=== PATIENT | female | born 1990 | race Hispanic/Latino ===

== ENCOUNTER 2024-03-31 18:45 | Inpatient (IN) | payer OTHER ==
[2024-03-31 19:00] VITALS: BMI 40.5
[2024-03-31] MEDS ORDERED: Diphenoxylate HCl/Atropine Tablet PO PRN (20:00)
[2024-03-31] MEDS ORDERED: Carboprost 250 MCG/ML AMP IM PRN (20:00)
[2024-03-31] MEDS ORDERED: Tranexamic Acid 1,000 MG/10 ML VIAL IVP PRN (20:00)
[2024-03-31] MEDS ORDERED: Acetaminophen 500 MG TAB PO PRN (20:00)
[2024-03-31] MEDS ORDERED: fentaNYL 50 mcg/mL 1 mL Vial SLOW IVP PRN (20:00)
[2024-03-31] MEDS ORDERED: Lorazepam 2 MG/ML VIAL SLOW IVP PRN (20:00)
[2024-03-31] MEDS ORDERED: Calcium Gluc 4.6 MEQ/10 ML (100 MG/ML) SLOW IVP PRN (20:00)
[2024-03-31] MEDS ORDERED: Promethazine HCl 25 MG/ML VIAL IM PRN (20:00)
[2024-03-31] MEDS: Labetalol HCl 100 MG/20 ML VIAL ONE (20:00)
[2024-03-31] MEDS ORDERED: Oxytocin 30 units/NS 500 ML 500 ML IV SCH (20:00)
[2024-03-31] MEDS ORDERED: Magnesium Sulfate 20 gm/500 ml 20 GM/500 ML BAG IVPB SCH (20:00)
[2024-03-31] MEDS ORDERED: Lidocaine 1% (PF) 30 ML VIAL SC PRN (20:00)
[2024-03-31] MEDS ORDERED: Labetalol HCl 100 MG/20 ML VIAL SLOW IVP PRN (20:07)
[2024-03-31] MEDS: Lactated Ringer's 1,000 ML IV SCH (20:16)
[2024-03-31] MEDS: Magnesium Sulfate 20 gm/500 ml 20 GM/500 ML BAG ONE (20:18)
[2024-03-31] MEDS: Labetalol HCl 100 MG/20 ML VIAL SLOW IVP PRN ×2 (20:37→21:43)
[2024-03-31 20:53] LABS: #Basophils 0.02 10x3/uL (0.0-0.2); #Eosinphils 0.04 10x3/uL (0.0-0.5); %Basophils 0.2 % (0.0-2.0); %Eosinophils 0.4 % (0.0-6.0); %Lymphocytes 23.3 % (18.0-47.0); %Monocytes 6.7 % (0.0-10.0); Hematocrit 32.9 % (34.9-44.5); Hemoglobin 10.9 g/dL (12.0-15.5); Mean Corpuscular HGB CONC 33.1 g/dL (32.0-36.0); Mean Corpuscular Hemoglobin 27.8 pg (27.0-33.0); Mean Corpuscular Volume 83.9 fL (81.6-98.3); Mean Platelet Volume 10.1 fL (7.4-10.4); Platelet Count 322 10x3/uL (150-450); RBC Distribution Width 13.3 % (11.5-14.5); Red Blood Cell (RBC) Count 3.92 10x6/uL (3.90-5.03); White Blood Cell (WBC) Count 10.4 10x3/uL (3.5-10.5)
[2024-03-31] MEDS ORDERED: Lantus 1000 UNITS/10 ML VIAL SC SCH (21:00)
[2024-03-31 21:04] LABS: ALT (SGPT) 28 U/L (8-55); AST (SGOT) 26 U/L (5-34); Albumin 2.5 g/dL (3.5-5.0); Alkaline Phosphatase 98 U/L (40-110); Anion Gap 12 mmol/L (10-20); BUN (Urea Nitrogen) 16 mg/dL (7.0-18.7); Bilirubin, Total 0.2 mg/dL (0.2-1.2); Calc. Creatinine Clearance 187 mL/min (70-130); Calcium 9.5 mg/dL (7.8-10.44); Carbon Dioxide 22 mmol/L (22-29); Chloride 107 mmol/L (98-107); Estimated GFR 102; Globulin 4.8 g/dL (2.4-3.5); Glucose 63 mg/dL (70-105); Potassium 4.1 mmol/L (3.5-5.1); Protein, Total 7.3 g/dL (6.0-8.3); Sodium 137 mmol/L (136-145)
[2024-03-31] MEDS: Misoprostol 100 MCG TAB VAG SCH (21:05)
[2024-03-31 21:23] LABS: HBsAg Index 0.13 S/CO (0-0.99); Hep B Surf Ag - L&D Non-Reactive S/CO (NonReactive); Syphilis Antibody Nonreactive (Nonreactive); Syphilis Antibody Index 0.05 S/CO (<1.00 Non-Reactive)
[2024-03-31 21:55] LABS: Creatinine, Urine 176.22 mg/dL (47-110)
[2024-03-31] MEDS: Labetalol HCl 200 MG TAB PO SCH (22:20)
[2024-04-01] MEDS: Penicillin G Potassium 5 MILL.UNITS in Sodium Chloride 0.9% 100 ML IVPB SCH (00:45)
[2024-04-01 01:36] LABS: Magnesium 4.1 mg/dL (1.6-2.6)
[2024-04-01] MEDS: hydrALAZINE 20 MG/ML VIAL SLOW IVP PRN ×2 (01:41→02:07)
[2024-04-01] MEDS ORDERED: NIFEdipine XL 30 MG ER.TAB PO SCH (02:15)
[2024-04-01] MEDS: NIFEdipine 10 MG CAP PO SCH (02:18)
[2024-04-01] MEDS: Penicillin G 2.5 MILL.units 2.5 MILL.UNITS in Premix 1 BAG IVPB SCH (05:01)
[2024-04-01] MEDS: Magnesium Sulfate 20 gm/500 ml 20 GM/500 ML BAG IVPB SCH (05:06)
[2024-04-01] MEDS ORDERED: Dextrose 50% Abboject 50 ML SYRINGE SLOW IVP PRN (06:49)
[2024-04-01] MEDS ORDERED: Glucagon 1 MG/ML KIT IM PRN (06:49)
[2024-04-01] MEDS ORDERED: Insulin Lispro 100 UNIT/ML 10 ML VIAL SC PRN (06:49)
[2024-04-01] MEDS ORDERED: Dextrose 5% in Water 1,000 ML IV PRN (06:49)
[2024-04-01] MEDS: Labetalol HCl 200 MG TAB PO SCH (08:39)
[2024-04-01 09:05] LABS: #Basophils 0.02 10x3/uL (0.0-0.2); #Eosinphils 0.02 10x3/uL (0.0-0.5); #Monocytes 0.49 10x3/uL (0.0-1.1); #Neutrophils 8.73 10x3/uL (1.5-8.4); %Basophils 0.2 % (0.0-2.0); %Eosinophils 0.2 % (0.0-6.0); %Lymphocytes 15.2 % (18.0-47.0); %Monocytes 4.5 % (0.0-10.0); %Neutrophils 79.4 % (40.0-75.0); Hematocrit 31.4 % (34.9-44.5); Hemoglobin 10.8 g/dL (12.0-15.5); Mean Corpuscular HGB CONC 34.4 g/dL (32.0-36.0); Mean Corpuscular Hemoglobin 28.5 pg (27.0-33.0); Mean Corpuscular Volume 82.8 fL (81.6-98.3); Mean Platelet Volume 9.7 fL (7.4-10.4); Platelet Count 299 10x3/uL (150-450); RBC Distribution Width 13.3 % (11.5-14.5); Red Blood Cell (RBC) Count 3.79 10x6/uL (3.90-5.03)
[2024-04-01 09:22] LABS: ALT (SGPT) 27 U/L (8-55); AST (SGOT) 23 U/L (5-34); Albumin 2.4 g/dL (3.5-5.0); Alkaline Phosphatase 96 U/L (40-110); Anion Gap 14 mmol/L (10-20); BUN (Urea Nitrogen) 14 mg/dL (7.0-18.7); Bilirubin, Total 0.2 mg/dL (0.2-1.2); Calc. Creatinine Clearance 199 mL/min (70-130); Calcium 8.1 mg/dL (7.8-10.44); Carbon Dioxide 18 mmol/L (22-29); Chloride 103 mmol/L (98-107); Estimated GFR 110; Glucose 88 mg/dL (70-105); Potassium 4.3 mmol/L (3.5-5.1); Protein, Total 6.4 g/dL (6.0-8.3); Sodium 131 mmol/L (136-145)
[2024-04-01 09:25] LABS: Critical Call Chemistry NUR.BH11@0925; Magnesium 5.3 mg/dL (1.6-2.6)
[2024-04-01] MEDS: Oxytocin 30 units/NS 500 ML 500 ML IV SCH (11:34)
[2024-04-01] MEDS: Ondansetron PF 4 MG/2 ML Vial IVP PRN (15:08)
[2024-04-01] MEDS ORDERED: Bupivacaine/Epinephrine 0.25% 30 ML VIAL ONE (16:00)
[2024-04-01] MEDS: fentaNYL/Ropivacaine Epidural 100 ML ONE (17:41)
[2024-04-01] MEDS ORDERED: Naloxone HCl 0.4 mg/ml Vial IV PRN (18:34)
[2024-04-01] MEDS ORDERED: Moisturizing Cream (Eucerin) 113 GM JAR TOP PRN (18:34)
[2024-04-01] MEDS ORDERED: Ondansetron PF 4 MG/2 ML Vial IVP PRN (18:34)
[2024-04-01] MEDS ORDERED: Promethazine HCl 25 MG/ML VIAL IM PRN (18:34)
[2024-04-01] MEDS ORDERED: Meperidine HCl/PF 25 MG (1 mL) VIAL SLOW IVP PRN (18:34)
[2024-04-01] MEDS ORDERED: diphenhydrAMINE 50 MG/ML VIAL IVP PRN (18:34)
[2024-04-01] MEDS ORDERED: fentaNYL 50 mcg/mL 1 mL Vial SLOW IVP PRN (18:34)
[2024-04-01] MEDS ORDERED: Naloxone HCl 0.4 mg/ml Vial IVP PRN ×2 (18:34)
[2024-04-01] MEDS ORDERED: Communication Order-Pharmacy FS SCH (18:45)
[2024-04-01] MEDS: Famotidine/PF 20 mg/2ml Vial SLOW IVP PRN (18:54)
[2024-04-01] MEDS: CEFAZOLIN 2 GM in Sodium Chloride 0.9% 100 ML IVPB SCH (18:54)
[2024-04-01] MEDS: Bicitra 30 ML UDCUP PO PRN (18:54)
[2024-04-01] MEDS: Azithromycin 500 MG in Sodium Chloride 0.9% 250 ML 250 ML IVPB SCH (18:54)
[2024-04-01] MEDS: Misoprostol 200 MCG TAB PR PRN (21:36)
[2024-04-01] MEDS ORDERED: Misoprostol 200 MCG TAB PR PRN (22:09)
[2024-04-01] MEDS ORDERED: Bisacodyl 10 MG SUPP PR PRN (22:09)
[2024-04-01] MEDS ORDERED: Measles/Mumps/Rubella 10 MCG/0.5 ML VIAL SC ONE (22:09)
[2024-04-01] MEDS ORDERED: Lanolin Ointment 7 GM TUBE TOP PRN (22:09)
[2024-04-01] MEDS ORDERED: hydrALAZINE 20 MG/ML VIAL SLOW IVP PRN (22:09)
[2024-04-01] MEDS ORDERED: Simethicone Chewable 80 MG TAB PO PRN (22:09)
[2024-04-01] MEDS ORDERED: Oxytocin 30 units/NS 500 ML 500 ML IV SCH (22:15)
[2024-04-02] MEDS: Ondansetron PF 4 MG/2 ML Vial IVP PRN ×2 (01:21→10:39)
[2024-04-02] MEDS: Acetaminophen 325 MG TAB PO SCH ×2 (02:01→02:12)
[2024-04-02] MEDS: Ondansetron PF 4 MG/2 ML Vial ONE (02:02)
[2024-04-02] MEDS: Ketorolac Tromethamine 30 MG (1 mL) VIAL ONE (02:02)
[2024-04-02] MEDS: Dexamethasone 10 MG/ML VIAL ONE (02:10)
[2024-04-02] MEDS: hydrALAZINE 20 MG/ML VIAL SLOW IVP SCH (02:10)
[2024-04-02] MEDS: Lactated Ringer's 500 ML IV SCH (02:10)
[2024-04-02] MEDS: Lidocaine 2% MPF 10 ML AMP (For Epidural Use) ONE (02:11)
[2024-04-02] MEDS: Misoprostol 200 MCG TAB ONE (02:11)
[2024-04-02] MEDS: Promethazine HCl 25 MG/ML VIAL ONE (02:11)
[2024-04-02] MEDS: Methylergonovine 0.2 MG/ML VIAL ONE (02:11)
[2024-04-02] MEDS: Oxytocin 30 units/NS 500 ML 0 ML ONE (02:11)
[2024-04-02] MEDS: Oxytocin 10 UNITS/ML VIAL ONE (02:11)
[2024-04-02] MEDS: Carboprost 250 MCG/ML AMP ONE (02:11)
[2024-04-02] MEDS: Morphine PF 10 MG/10 ML VIAL ONE (02:11)
[2024-04-02] MEDS: Ketorolac Tromethamine 30 MG (1 mL) VIAL IVP SCH ×2 (02:12→09:40)
[2024-04-02] MEDS: Insulin Lispro 100 UNIT/ML 10 ML VIAL SC PRN (05:13)
[2024-04-02] MEDS: Promethazine HCl 25 MG/ML VIAL IM PRN (05:39)
[2024-04-02] MEDS ORDERED: Ibuprofen 800 MG TAB PO SCH (06:00)
[2024-04-02 06:54] LABS: Hematocrit 27.6 % (34.9-44.5); Hemoglobin 9.3 g/dL (12.0-15.5); Mean Corpuscular HGB CONC 33.7 g/dL (32.0-36.0); Mean Corpuscular Hemoglobin 28.3 pg (27.0-33.0); Mean Corpuscular Volume 83.9 fL (81.6-98.3); Mean Platelet Volume 9.7 fL (7.4-10.4); Platelet Count 253 10x3/uL (150-450); Red Blood Cell (RBC) Count 3.29 10x6/uL (3.90-5.03); White Blood Cell (WBC) Count 14.9 10x3/uL (3.5-10.5)
[2024-04-02] MEDS ORDERED: Dextrose 50% Abboject 50 ML SYRINGE SLOW IVP PRN (09:13)
[2024-04-02] MEDS ORDERED: Glucagon 1 MG/ML KIT IM PRN (09:13)
[2024-04-02] MEDS ORDERED: Insulin Lispro 100 UNIT/ML 10 ML VIAL SC PRN (09:13)
[2024-04-02] MEDS ORDERED: Dextrose 5% in Water 1,000 ML IV PRN (09:13)
[2024-04-02] MEDS: Ferrous Sulfate 325 MG TAB PO SCH (10:09)
[2024-04-02] MEDS: Prenatal Vitamin 1 TAB PO SCH (10:10)
[2024-04-02] MEDS: metFORMIN 500 MG TAB PO SCH (10:40)
[2024-04-02] MEDS ORDERED: Lorazepam 2 MG/ML VIAL SLOW IVP PRN (11:43)
[2024-04-02] MEDS ORDERED: Calcium Gluc 4.6 MEQ/10 ML (100 MG/ML) SLOW IVP PRN (11:43)
[2024-04-02] MEDS: Furosemide 40 MG (4 mL) VIAL SLOW IVP SCH (12:38)
[2024-04-02] MEDS: Magnesium Sulfate 20 gm/500 ml 20 GM/500 ML BAG IVPB SCH (13:39)
[2024-04-02 16:26] LABS: ALT (SGPT) 25 U/L (8-55); AST (SGOT) 29 U/L (5-34); Albumin 2.1 g/dL (3.5-5.0); Alkaline Phosphatase 77 U/L (40-110); Anion Gap 13 mmol/L (10-20); BUN (Urea Nitrogen) 17 mg/dL (7.0-18.7); Bilirubin, Total 0.2 mg/dL (0.2-1.2); Calc. Creatinine Clearance 175 mL/min (70-130); Carbon Dioxide 22 mmol/L (22-29); Chloride 100 mmol/L (98-107); Estimated GFR 94; Globulin 3.8 g/dL (2.4-3.5); Glucose 131 mg/dL (70-105); Potassium 4.6 mmol/L (3.5-5.1); Protein, Total 5.9 g/dL (6.0-8.3); Sodium 130 mmol/L (136-145)
[2024-04-02] MEDS ORDERED: Enoxaparin 40 MG (0.4 mL) SYRINGE SC SCH (20:00)
[2024-04-02] MEDS: Ibuprofen 800 MG TAB PO SCH (20:09)
[2024-04-02] MEDS: Enoxaparin 60 MG (0.6 mL) SYRINGE SC SCH (20:12)
[2024-04-03] MEDS: HYDROcodone/Acetaminophen 5/325 mg Tablet PO PRN ×2 (09:05→12:47)
[2024-04-03] MEDS: Insulin Lispro 100 UNIT/ML 10 ML VIAL SC PRN (12:45)
[2024-04-04] MEDS: Labetalol HCl 100 MG TAB PO SCH (10:47)
[2024-04-04] MEDS: hydrALAZINE 20 MG/ML VIAL SLOW IVP PRN (10:47)
[2024-04-04] MEDS: Amlodipine 5 MG TAB PO SCH (11:18)
[2024-04-04] MEDS ORDERED: Methocarbamol 500 MG TAB PO PRN (12:31)
[2024-04-04] MEDS: HYDROcodone/Acetaminophen 5/325 mg Tablet PO PRN (12:41)
[2024-04-04] MEDS: Ibuprofen 200 MG TAB PO SCH (12:45)
[2024-04-04] MEDS ORDERED: Labetalol HCl 100 MG TAB PO SCH (21:00)
[2024-04-04] MEDS: Docusate 100 MG CAP PO SCH (22:16)
[2024-04-05 05:08] LABS: #Basophils 0.03 10x3/uL (0.0-0.2); #Eosinphils 0.08 10x3/uL (0.0-0.5); #Monocytes 0.43 10x3/uL (0.0-1.1); #Neutrophils 4.59 10x3/uL (1.5-8.4); %Basophils 0.4 % (0.0-2.0); %Lymphocytes 32.3 % (18.0-47.0); %Monocytes 5.6 % (0.0-10.0); Hematocrit 26.5 % (34.9-44.5); Hemoglobin 8.7 g/dL (12.0-15.5); Mean Corpuscular HGB CONC 32.8 g/dL (32.0-36.0); Mean Corpuscular Hemoglobin 28.2 pg (27.0-33.0); Mean Corpuscular Volume 85.8 fL (81.6-98.3); Mean Platelet Volume 9.1 fL (7.4-10.4); Platelet Count 326 10x3/uL (150-450); RBC Distribution Width 13.3 % (11.5-14.5); Red Blood Cell (RBC) Count 3.09 10x6/uL (3.90-5.03); White Blood Cell (WBC) Count 7.7 10x3/uL (3.5-10.5)
[2024-04-05 05:27] LABS: ALT (SGPT) 42 U/L (8-55); AST (SGOT) 45 U/L (5-34); Albumin 2.4 g/dL (3.5-5.0); Alkaline Phosphatase 70 U/L (40-110); Anion Gap 15 mmol/L (10-20); BUN (Urea Nitrogen) 11 mg/dL (7.0-18.7); Bilirubin, Total 0.2 mg/dL (0.2-1.2); Calc. Creatinine Clearance 184 mL/min (70-130); Calcium 8.4 mg/dL (7.8-10.44); Carbon Dioxide 22 mmol/L (22-29); Chloride 106 mmol/L (98-107); Estimated GFR 100; Globulin 4.2 g/dL (2.4-3.5); Glucose 112 mg/dL (70-105); Potassium 4.6 mmol/L (3.5-5.1); Protein, Total 6.6 g/dL (6.0-8.3); Sodium 138 mmol/L (136-145)
[2024-04-05] MEDS ORDERED: Measles/Mumps/Rubella 10 MCG/0.5 ML VIAL SC ONE (07:34)
[2024-04-05] MEDS: Amlodipine 10 MG TAB PO SCH (08:36)
[2024-04-05] MEDS: Polyethylene Glycol 3350 17 GM Packet PO SCH (08:38)
[2024-04-05] MEDS: Labetalol HCl 100 MG/20 ML VIAL SLOW IVP PRN ×2 (09:29→10:20)
[2024-04-05] MEDS ORDERED: Labetalol HCl 100 MG/20 ML VIAL SLOW IVP PRN ×2 (10:19)
[2024-04-05 10:41] LABS: #Basophils 0.03 10x3/uL (0.0-0.2); #Eosinphils 0.09 10x3/uL (0.0-0.5); #Monocytes 0.38 10x3/uL (0.0-1.1); %Basophils 0.4 % (0.0-2.0); %Eosinophils 1.2 % (0.0-6.0); %Lymphocytes 29.2 % (18.0-47.0); %Monocytes 5.1 % (0.0-10.0); %Neutrophils 63.4 % (40.0-75.0); Hematocrit 27.7 % (34.9-44.5); Hemoglobin 9.2 g/dL (12.0-15.5); Mean Corpuscular HGB CONC 33.2 g/dL (32.0-36.0); Mean Corpuscular Hemoglobin 28.5 pg (27.0-33.0); Mean Corpuscular Volume 85.8 fL (81.6-98.3); Mean Platelet Volume 9.9 fL (7.4-10.4); Platelet Count 343 10x3/uL (150-450); RBC Distribution Width 13.3 % (11.5-14.5); Red Blood Cell (RBC) Count 3.23 10x6/uL (3.90-5.03); White Blood Cell (WBC) Count 7.4 10x3/uL (3.5-10.5)
[2024-04-05 10:54] LABS: ALT (SGPT) 45 U/L (8-55); AST (SGOT) 48 U/L (5-34); Albumin 2.5 g/dL (3.5-5.0); Alkaline Phosphatase 73 U/L (40-110); Anion Gap 14 mmol/L (10-20); BUN (Urea Nitrogen) 11 mg/dL (7.0-18.7); Bilirubin, Total 0.3 mg/dL (0.2-1.2); Calc. Creatinine Clearance 197 mL/min (70-130); Calcium 8.9 mg/dL (7.8-10.44); Carbon Dioxide 22 mmol/L (22-29); Chloride 105 mmol/L (98-107); Estimated GFR 108; Globulin 4.2 g/dL (2.4-3.5); Glucose 128 mg/dL (70-105); Potassium 4.8 mmol/L (3.5-5.1); Protein, Total 6.7 g/dL (6.0-8.3); Sodium 136 mmol/L (136-145)
[2024-04-05] MEDS: Ibuprofen 800 MG TAB PO SCH (13:37)
[2024-04-05] MEDS: Labetalol HCl 200 MG TAB PO SCH (21:28)
[2024-04-06 09:10] VITALS: BP 141/73; TEMP 98.2
== END 2024-04-06 11:45 | disposition home or self-care (01) | DRG 788 ==
LOC: CSHLD/OP 18:45 → CSHLD 20:18 → CSHPED 04-02 21:45
PROVIDERS: ADMIT Student in an Organized Health Care Education/Training Program; ATTEND Student in an Organized Health Care Education/Training Program
PROC: 10D00Z1 Extraction of Products of Conception, Low, Open Approach (ICD-10-PCS; principal; 2024-04-01)
PROC: 10907ZC Drainage of Amniotic Fluid, Therapeutic from Products of Conception, Via Natural or Artificial Opening (ICD-10-PCS; 2024-04-01)
PROC: 10H07YZ Insertion of Other Device into Products of Conception, Via Natural or Artificial Opening (ICD-10-PCS; 2024-04-01)
DX: O11.4 Pre-existing hypertension with pre-eclampsia, complicating childbirth (principal); O24.12 Pre-existing type 2 diabetes mellitus, in childbirth; Z3A.35 35 weeks gestation of pregnancy; Z37.0 Single live birth; Z79.4 Long term (current) use of insulin; Z79.82 Long term (current) use of aspirin; O76 Abnormality in fetal heart rate and rhythm complicating labor and delivery; O99.214 Obesity complicating childbirth; O09.513 Supervision of elderly primigravida, third trimester; O99.824 Streptococcus B carrier state complicating childbirth; O99.892 Other specified diseases and conditions complicating childbirth; N18.1 Chronic kidney disease, stage 1; E11.22 Type 2 diabetes mellitus with diabetic chronic kidney disease; O10.22 Pre-existing hypertensive chronic kidney disease complicating childbirth
CPT/HCPCS: 36415; 36416; 51702; 80053; 82570; 83735; 84156; 84550; 85025; 85027; 86780; 86850; 86900; 86901; 87340; 99285; J0360; J0456; J1100; J1650; J1815; J1885; J1940; J2274; J2405; J2540; J2550; J2590; J3475; J3490; J7050; J7120